=== PATIENT | female | born 1980 | race Caucasian/White ===

== ENCOUNTER 2017-05-28 14:22 | Inpatient (IN) | payer BC, MEDICAID ==
[~2017-05-28] VITALS: Ht 160 cm; Wt 67.0 kg
[2017-05-28] MEDS ORDERED: IBUP80TA PO (14:42)
[2017-05-28] MEDS ORDERED: AMOX500T PO (14:42)
[2017-05-28] MEDS ORDERED: CLINDAMYCIN 900 MG in APPROPRIATE DILUENT 1 EA IV ONE (16:00)
[2017-05-28 16:12] LABS: BASO # 0.1 10^3/uL (0.0-0.2); BASO % 0.5 % (0.0-1.0); EOS # 0.1 10^3/uL (0.0-0.50); EOS % 0.4 % (0.0-3.0); IMMATURE GRANULOCYTE % 0.2 % (0-0); LYMPH # 1.7 10^3/uL (1.5-4.5); LYMPH % 13.9 % (24.0-44.0); MEAN CORPUSCULAR HEMOGLOBIN 31.2 pg (27.0-33.0); MEAN CORPUSCULAR HGB CONC 33.4 g/dl (32.0-36.5); MEAN CORPUSCULAR VOLUME 93.4 fl (80.0-96.0); MONO # 0.9 10^3/uL (0.0-0.8); MONO % 7.2 % (0.0-5.0); NEUTROPHILS # 9.5 10^3/uL (1.8-7.7); NEUTROPHILS % 77.8 % (36.0-66.0); PLATELET COUNT, AUTOMATED 269 10^3/uL (150-450); RED CELL DISTRIBUTION WIDTH 12.4 % (11.5-14.5); WHITE BLOOD COUNT 12.2 10^3/uL (4.0-10.0)
[2017-05-28 16:28] LABS: CONTROL LINE HCG INT CTR LINE PRESENT
[2017-05-28 16:32] LABS: ANION GAP 5 MEQ/L (8-16); BLOOD UREA NITROGEN 8 MG/DL (7-18); CALCIUM LEVEL 8.4 MG/DL (8.5-10.1); CARBON DIOXIDE LEVEL 27 MEQ/L (21-32); CHLORIDE LEVEL 110 MEQ/L (98-107); CREATININE FOR GFR 0.64 MG/DL (0.55-1.02); GLOMERULAR FILTRATION RATE > 60.0 (>60); GLUCOSE, FASTING 107 MG/DL (70-105); POTASSIUM SERUM 3.4 MEQ/L (3.5-5.1); SODIUM LEVEL 142 MEQ/L (136-145)
[2017-05-28] MEDS ORDERED: ISOVUE-370 76% 100ML VIAL (Q9967) As Ordered ONE (16:34)
[2017-05-28] MEDS ORDERED: SUBO4MIS SL (17:14)
--- NOTE | 2017-05-28 18:30 | REPUSA ---
CLINICAL HISTORY: Swelling. TECHNIQUE: Multiple axial CT images were obtained through the neck with IV contrast material. MPR cor onal and sagittal sequences were obtained. COMMENTS: The oropharyngeal soft tissues are normal and bilaterally symmetric. The piriform sinuses are normal. There is no supra or infraglottic laryngeal mass. The proximal trachea is normal. There is no paravertebral soft tissue mass. The salivary glands are normal. There is no bulky deep ce rvical or jugular lymphadenopathy. Numerous small bilateral submandibular jugular central lymph node s are present measuring up to 8 mm. These are nonspecific and likely reactive. The paravertebral so ft tissue space is normal. Limited images through the posterior fossa demonstrate no evidence for tonsilar herniation. Evaluation of the visualized lung apices reveals no evidence for abnormality. There is no evidence for abnormal enhancement. IMPRESSION: small bilateral submandibular jugular central lymph nodes are present measuring up to 8 mm. These ar e nonspecific and likely reactive. Thank you for your kind referral of this patient.
[2017-05-28 20:25] VITALS: BP 125/66
[2017-05-28] MEDS: IBUPROFEN 800 MG TAB PO PRN (21:12)
[2017-05-28] MEDS: LR 1,000 ML IV SCH (21:12)
[2017-05-28] MEDS ORDERED: MORPHINE 2 MG/ML 1ML SYRINGE IV PRN (21:15)
[2017-05-28] MEDS ORDERED: ONDANSETRON 4MG/2ML VIAL (J2405) IV PRN (21:15)
[2017-05-29] VITALS (7 sets, daily range): BP systolic 106–122; BP diastolic 58–76
[2017-05-29] MEDS: CLINDAMYCIN 900 MG in APPROPRIATE DILUENT 1 EA IV SCH ×3 (00:39→15:17)
[2017-05-29] MEDS: IBUPROFEN 800 MG TAB PO PRN (07:20)
[2017-05-29] MEDS: LR 1,000 ML IV SCH ×2 (08:23→13:30)
[2017-05-29] MEDS ORDERED: NICOTINE 21MG/24HR 1 EA TRANSDERMAL TD SCH (09:00)
[2017-05-29] MEDS ORDERED: CHLORHEXIDINE GLUCONATE 0.12 % 15ML UDC (PERIDEX ORAL RINSE) As Ordered ONE (17:50)
[2017-05-29] MEDS ORDERED: LIDOCAINE 2% W/ EPINEPHRINE 1.7 ML DENTAL INJ As Ordered ONE (17:50)
[2017-05-29] MEDS ORDERED: SUCCINYLCHOLINE 100 MG/5 ML SYRINGE (J0330) As Ordered ONE (17:59)
[2017-05-29] MEDS ORDERED: dexameTHASONE 4 MG/ML 1ML VIAL (J1100) As Ordered ONE (17:59)
[2017-05-29] MEDS ORDERED: LIDOCAINE 2% INJ 100 MG/5 ML SDV (FOR ANES.) As Ordered ONE (17:59)
[2017-05-29] MEDS ORDERED: PROPOFOL 200 MG/20 ML VIAL As Ordered ONE (17:59)
[2017-05-29] MEDS ORDERED: fentaNYL 100 MCG/2 ML INJECTION (J3010) As Ordered ONE (18:00)
[2017-05-29] MEDS ORDERED: MIDAZOLAM INJ 2 MG/2 ML VIAL (J2250) As Ordered ONE (18:00)
[2017-05-29] MEDS ORDERED: ROCURONIUM BROMIDE 50 MG/5 ML VIAL/SYRINGE As Ordered ONE (18:15)
[2017-05-29] MEDS ORDERED: KETOROLAC 60 MG/2 ML VIAL (J1885) As Ordered ONE (18:39)
[2017-05-29] MEDS ORDERED: fentaNYL 100 MCG/2 ML INJECTION (J3010) IV PRN (19:45)
[2017-05-29] MEDS ORDERED: MORPHINE 2 MG/ML 1ML SYRINGE IV PRN (19:45)
[2017-05-29] MEDS ORDERED: ONDANSETRON 4MG/2ML VIAL (J2405) IV PRN ×2 (19:45)
[2017-05-29] MEDS ORDERED: LR 1,000 ML IV SCH (19:45)
[2017-05-29] MEDS ORDERED: NORCO, ANEXSIA 5/325MG TABLET (HYDROcodone/ACETAMINOPHEN) PO PRN (19:45)
[2017-05-30] MEDS: IBUPROFEN 800 MG TAB PO SCH ×3 (00:56→16:22)
[2017-05-30] MEDS: CLINDAMYCIN 900 MG in APPROPRIATE DILUENT 1 EA IV SCH ×3 (00:56→16:22)
[2017-05-30 03:15] VITALS: BP 106/53
[2017-05-30 05:34] LABS: MEAN CORPUSCULAR HEMOGLOBIN 31.1 pg (27.0-33.0); MEAN CORPUSCULAR VOLUME 91.4 fl (80.0-96.0); PLATELET COUNT, AUTOMATED 234 10^3/uL (150-450); RED CELL DISTRIBUTION WIDTH 11.9 % (11.5-14.5); WHITE BLOOD COUNT 4.7 10^3/uL (4.0-10.0)
[2017-05-30 06:00] VITALS: BP 110/65
[2017-05-30 10:00] VITALS: BP 106/61
--- NOTE | 2017-05-30 10:20 | RO ---
DATE OF PROCEDURE: 05/29/2017 PREOPERATIVE DIAGNOSIS: Gross caries tooth #17 and left sublingual space infection. POSTOPERATIVE DIAGNOSIS: Status post the above. PROCEDURE PERFORMED: Routine extraction of tooth #17 and incision and drainage of left sublingual space abscess. SURGEON: Bob Nolasco DDS [employer] P[employer] MIXER: ANESTHESIA: General endotracheal anesthesia via oral FREDERICK. SPECIMEN: Aerobe and anaerobic, and cultures and sensitivity. INDICATIONS FOR SURGERY: Mrs. Alonzo is a pleasant 36-year-old female who presented to the emergency room on Sunday, May 28, 2017 complaining of tooth pain, facial swelling and dysphagia for the last 4 days. She has been self medicating herself with amoxicillin for the last 3 days and has noticed significant worsening of her symptoms. I was called to the ER for consultation with the patient and management. Upon clinical examination she had mild left cheek swelling that extended into her left neck with no induration or erythema noted. She did however have left neck lymphadenopathy with tenderness to palpation. I was still able to palpate the inferior border of the mandible. She does have poor dentition with several missing teeth and grossly decayed tooth #17. Her maximal interincisal opening was about 15 mm with severe pain and inability to open any further than that. The left mandibular vestibule was very soft with no tenderness to palpation. The tooth #17 was very tender to palpation and her left floor of mouth was slightly elevated with swelling that is noted with ease upon palpation and it was very tender to palpation. Uvula is midline. Oropharynx is clear with no swelling noted and there was no airway involvement. Radiographically, a CT scan that was performed with IV contrast which showed loculations that were noted in the left sublingual space. Her white count on admission was 12.2 thousand. Initially she was placed immediately on IV antibiotics in the form of 900 mg of clindamycin IV every 8 hours. She was admitted as an inpatient. DESCRIPTION OF PROCEDURE: On May 29, 2017 the patient was taken to preop holding area. Any last minute questions were addressed. A informed consent was explained in full to the patient and was signed. At that point, the patient was taken back to the operating room. She was laid supine on the operating room table. Ulnar nerve protectors were placed. Noninvasive cardiac monitors were applied. At that point the patient underwent general anesthesia and was intubated with an oral FREDERICK. At this point the patient was then prepped and draped in the usual sterile fashion. A time out procedure was performed to identify the patient, the procedure and any other precautions. A moist throat pack was then inserted in the patient's oropharynx followed by the administration of six Carpule's of 2% lidocaine with 1:100,000 as local infiltrations and blocks. A 15 blade was then used to make a full-thickness flap with a hockey stick extension extended medially including tooth #17 and into the distal mandible along the edentulous crest. The flap was fully reflected. There was no purulence noted buccally; however, the flap was then reflected lingually where there was a small amount purulence that was noted and that is the area where the specimen for aerobes, anaerobes, and cultures and sensitivity was obtained and sent to the microbiology laboratory. Further dissection lingually all the way down to the inferior border of the mandible was performed. An abundance of granulation tissue was noted in the sublingual space with no real purulence noted. Copious irrigation was performed buccally and lingually, and then at that point tooth #17 was luxated out with ease with forceps. The socket was copiously irrigated and curetted and there was no lingual perforation noted. At this point, the flaps were once again irrigated and closed with #3-0 chromic sutures. The oral cavity was irrigated and suctioned the throat pack was removed and the patient was then awakened from general anesthesia and taken back to the PACU. COMPLICATIONS: None. ESTIMATED BLOOD LOSS: About 10 mL. DRAINS: There were no drains placed.
[2017-05-30 14:00] VITALS: BP 115/68
[2017-05-30 18:15] VITALS: BP 118/66
[2017-05-30] MEDS ORDERED: CLEO300C2 PO (18:41)
[2017-05-30] MEDS ORDERED: NICOTINE 21MG/24HR 1 EA TRANSDERMAL TD ONE (19:00)
== END 2017-05-30 19:00 | disposition home or self-care (01) | DRG 98 ==
LOC: M ED 14:22 → M ED INP 17:00 → M MS5PR 20:25
PROVIDERS: ADMIT Dentist; ATTEND Dentist
PROC: 0CDWXZ0 Extraction of Upper Tooth, Single, External Approach (ICD-10-PCS; 2017-05-29)
PROC: 0W930ZZ Drainage of Oral Cavity and Throat, Open Approach (ICD-10-PCS; principal; 2017-05-29 15:30)
DX: K12.2 Cellulitis and abscess of mouth (principal); K02.9 Dental caries, unspecified

== ENCOUNTER 2023-11-22 01:37 | Emergency (ER) | payer OTHER, MEDICAID ==
[~2023-11-22] VITALS: Ht 160 cm; Wt 95.7 kg
[~2023-11-22 01:37] MED LIST: AMOX500T PO; CLEO300C2 PO; IBUP80TA PO; SUBO4MIS SL
[2023-11-22 01:38] VITALS: BP 122/82; TEMP 97.6; O2SAT 97
== END 2023-11-22 04:27 | disposition left against medical advice (07) ==
LOC: M ED 01:37
DX: Z53.21 Procedure and treatment not carried out due to patient leaving prior to being seen by health care provider (principal)